=== PATIENT | female | born 2000 | race Caucasian/White ===

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

== ENCOUNTER 2021-07-16 08:00 | Outpatient (CLI) | payer BC, MEDICAID ==
[2021-07-16 10:32] LABS: THYROID STIMULATING HORMONE 2.51 uIU/mL (0.34-5.60)
[2021-07-16 10:34] LABS: FREE T3 4.61 pg/mL (2.5-3.9); FREE T4 (FREE THYROXINE) 0.7 ng/dL (0.58-1.64)
[2021-07-16 12:31] LABS: ESTIMATED AVERAGE GLUCOSE 212 mg/dL (70-100)
[2021-07-16 22:02] LABS: CHLAMYDIA TRACHOMATIS DNA NEGATIVE (NEGATIVE); NEISSERIA GONORRHOEAE DNA NEGATIVE (NEGATIVE); TRICHOMONAS VAGINALIS DNA NEGATIVE (NEGATIVE)
[2021-07-17 16:16] LABS: HIV AG/AB 4TH GEN NON-REACTIVE (NON-REACTIVE)
== END 2021-07-16 23:59 ==
LOC: LAB 08:00
PROVIDERS: ATTEND Pediatrics
DX: Z00.00 Encounter for general adult medical examination without abnormal findings (principal); E10.9 Type 1 diabetes mellitus without complications
CPT/HCPCS: 36415; 83036; 84439; 84443; 84481; 86592; 87389; 87491; 87591; 87661

== ENCOUNTER 2022-04-04 10:12 | Outpatient (CLI) | payer MEDICAID, BC ==
[2022-04-04 23:57] LABS: CHLAMYDIA TRACHOMATIS DNA NEGATIVE (NEGATIVE); NEISSERIA GONORRHOEAE DNA NEGATIVE (NEGATIVE); TRICHOMONAS VAGINALIS DNA NEGATIVE (NEGATIVE)
== END 2022-04-04 23:59 | disposition home or self-care (01) ==
LOC: LAB.R 10:12
PROVIDERS: ATTEND Nurse Practitioner
DX: Z11.3 Encounter for screening for infections with a predominantly sexual mode of transmission (principal)
CPT/HCPCS: 87491; 87591; 87661

== ENCOUNTER 2023-04-15 12:58 | Outpatient (CLI) | payer MEDICAID ==
--- NOTE | 2023-04-16 11:18 | Ultrasound Report ---
LIMITED ULTRASOUND OF RIGHT BREAST: 04/15/2023 CLINICAL: Palpable right breast lump. Focal right breast pain. Comparison is made to exams dated: 04/10/2023 ultrasound, 12/13/2018 ultrasound, and 10/18/2018 [facility]. Color flow ultrasound of the right breast 10 o'clock region was performed. Simmons scale images of the real-time examination were reviewed. No significant abnormalities were seen sonographically in the right breast. IMPRESSION: NEGATIVE There is no sonographic evidence of malignancy. There is no abnormality seen in the right breast to correspond with the area of clinical concern desc ribed as palpable abnormality and pain in the upper outer quadrant, however, recommend clinical follo w up for persistent or worsening symptoms, or development of any clinically suspicious findings. Findings and recommendations were conveyed to the patient during today's evaluation. This exam was interpreted at Station ID: [id number]. Electronically Signed By: Nael Carbajal M.D. aty/:04/15/2023 14:17:10 Ultrasound BI-RADS: 1 Negative BI-RADS CATEGORY: (1) - 1 Unspecified - other recall n/a LATERALITY: (B)
== END 2023-04-15 12:59 | disposition home or self-care (01) ==
LOC: DI 12:58
PROVIDERS: ATTEND Nurse Practitioner
DX: N63.11 Unspecified lump in the right breast, upper outer quadrant (principal)

== ENCOUNTER 2023-11-26 18:42 | Emergency (ER) | payer BC, MEDICAID ==
[2023-11-26 19:14] VITALS: O2SAT 98
--- NOTE | 2023-11-26 19:49 | XRAY Report ---
PROCEDURE: Chest 2V INDICATIONS: COUGHING/FEVER TECHNIQUE: 2 views of the chest were acquired. COMPARISON: None. FINDINGS: Surgical changes and devices: None. Lungs and pleura: No pleural effusions or pneumothorax. Lungs are clear. Mediastinum: Mediastinal contours appear normal. Heart size is normal. Bones and chest wall: No suspicious bony lesions. Overlying soft tissues appear unremarkable. IMPRESSION: No acute cardiopulmonary process. Reviewed by: Adam Zhao MD on 11/26/2023 7:48 PM PDT Approved by: Adam Zhao MD on 11/26/2023 7:48 PM PDT Station ID: [id number]
[2023-11-26 20:04] LABS: CORONAVIRUS 229E-RESP PCR NOT DETECTED; CORONAVIRUS HKU1-RESP PCR NOT DETECTED; CORONAVIRUS NL63-RESP PCR NOT DETECTED; CORONAVIRUS OC43-RESP PCR NOT DETECTED; HUMAN METAPNEUMOVIRUS NOT DETECTED; INFLUENZA A- RESP PCR PANEL NOT DETECTED; RHINOVIRUS/ENTEROVIRUS DETECTED; SARS-CoV-2 -RESP PCR PANEL NOT DETECTED
[2023-11-26 20:05] LABS: B. PARAPERTUSSIS- RESP PCR PAN NOT DETECTED; B. PERTUSSIS- RESP PCR PANEL NOT DETECTED; C. PNEUMONIAE- RESP PCR PANEL NOT DETECTED; INFLUENZA B - RESP PCR PANEL NOT DETECTED; M. PNEUMONIAE- RESP PCR PANEL NOT DETECTED; PARAINFLUENZA VIRUS 1 NOT DETECTED; PARAINFLUENZA VIRUS 2 NOT DETECTED; PARAINFLUENZA VIRUS 3 NOT DETECTED; PARAINFLUENZA VIRUS 4 NOT DETECTED; RSV- RESP PCR PANEL NOT DETECTED
--- NOTE | 2023-11-26 20:19 | ED Physician Documentation ---
PD HPI CHEST PAIN - Stated complaint Stated Complaint: CHEST PX - Chief complaint Chief Complaint: Resp - Additional information Additional information: 22 year-old female presents emergency department for chest pain below her rib cage is worse in the left side versus the right side. She has been feeling ill now for about the last 4 to 5 days with coughing fever. Also feels upper congestion muffled hearing.No shortness of breath no chest pain PD PAST MEDICAL HISTORY - Past Medical History Endocrine/Autoimmune: Type 1 diabetes - Past Surgical History Past Surgical History: No - Present Medications Home Medications: Ambulatory Orders Medication Instructions Recorded Confirmed Insulin Glargine,Hum.rec.anlog 24 unit SQ DAILY 03/29/15 11/14/16 [Lantus] Insulin Lispro [Humalog] 8 unit SQ DAILY 03/29/15 11/14/16 - Allergies Allergies/Adverse Reactions: Allergies Allergy/AdvReac Type Severity Reaction Status Date / Time acetaminophen [From Tylenol] AdvReac Unknown Verified 11/26/23 19:04 - Social History Does the pt smoke?: No Smoking Status: Never smoker Does the pt drink ETOH?: No Does the pt have substance abuse?: No - Immunizations Immunizations are current?: Yes PD ED PE NORMAL - Vitals Vital signs reviewed: Yes - General General: Alert and oriented X 3, No acute distress - HEENT HEENT: Atraumatic - Neck Neck: No JVD - Cardiac Cardiac: RRR - Respiratory Respiratory: No respiratory distress, Clear bilaterally - Abdomen Abdomen: Normal bowel sounds - Back Back: No CVA TTP - Derm Derm: Normal color, Warm and dry, No rash Results - Vitals Vitals: Vital Signs - 24 hr 11/26/23 11/26/23 18:55 20:31 Temperature 36.5 C 36.6 C Heart Rate 87 83 Respiratory 16 18 Rate Blood Pressure 128/84 H 125/82 H O2 Saturation 98 98 Oxygen O2 Source Room air - Labs Labs: Laboratory Tests 11/26/23 19:00 Nasal Adenovirus (PCR) NOT DETECTED Nasal B. parapertussis DNA (PCR) NOT DETECTED Nasal Coronavir 229E PCR NOT DETECTED Nasal Coronavir HKU1 PCR NOT DETECTED Nasal Coronavir NL63 PCR NOT DETECTED Nasal Coronavir OC43 PCR NOT DETECTED Nasal Enterovir/Rhinovir PCR DETECTED A Nasal Influenza B PCR NOT DETECTED Nasal Influenza A PCR NOT DETECTED Nasal Parainfluen 1 PCR NOT DETECTED Nasal Parainfluen 2 PCR NOT DETECTED Nasal Parainfluen 3 PCR NOT DETECTED Nasal Parainfluen 4 PCR NOT DETECTED Nasal RSV (PCR) NOT DETECTED Nasal B.pertussis DNA PCR NOT DETECTED Nasal C.pneumoniae (PCR) NOT DETECTED [place] Human Metapneumo PCR NOT DETECTED Nasal M.pneumoniae (PCR) NOT DETECTED Nasal SARS-CoV-2 (PCR) NOT DETECTED PD Medical Decision Making - ED course ED course: 21-year-old female presents emergency department for flulike symptoms. She tested positive for rhinovirus. Work note has been given for a couple more days off of work she said her last fever was about 4 days ago. She said that she is overall feeling better but just feels like she still was not 100% therapy which is what brought her into the ER. She was offered Tylenol ibuprofen in the ER but she said that she has plenty at home and is okay for now would take some when she gets home. No further workup indicated at this time told to follow-up with primary care provider return precautions given. Departure - Departure Disposition: 01 Home, Self Care Clinical Impression: Influenza A Instructions: ED Flu Comments: Thank you for trusting us with your care. As we discussed you have influenza A. This is what is contributing to the symptoms that you are experiencing. In time we should start to feel better. Make sure that you are drinking plenty of fluids eating a healthy well-balanced diet to help your immune system recover from this virus. Please come back to the emergency department for having any worsening symptoms and follow-up with your primary care provider for follow-up about ER visit. Forms: PCP List, Activity restrictions Discharge Date/Time: 11/26/23 20:31
[2023-11-26 20:42] VITALS: BP 125/82
== END 2023-11-26 20:31 | disposition home or self-care (01) ==
LOC: ED 18:42
DX: J10.1 Influenza due to other identified influenza virus with other respiratory manifestations (principal); E10.9 Type 1 diabetes mellitus without complications
CPT/HCPCS: 87633; 99283; 99284